=== PATIENT | female | born 1985 | race Caucasian/White ===

== ENCOUNTER 2022-06-02 14:18 | Outpatient (CLI) | payer OTHER, SELFPAY ==
[2022-06-02 17:07] LABS: Chlamydia DNA Amplified* NOT DETECTED (No Detected); GC DNA Amplified* NOT DETECTED (No Detected)
[2022-06-02 20:06] LABS: Hepatitis B Surface Antigen* Negative (Negative)
[2022-06-02 20:14] LABS: HIV 1/2/P24 Combo Screen* Negative (Negative)
[2022-06-02 20:23] LABS: Hepatitis C Virus Antibody* Negative (Negative)
[2022-06-04 16:21] LABS: Varicella-Zoster Virus Ab, IgG 690.1 IV
[2022-06-04 16:27] LABS: Rubella Antibody IgG 12.8 IU/mL
[2022-06-04 18:04] LABS: Rapid Plasma Reagin (RPR) Non Reactive (Non Reactive)
== END 2022-06-02 14:19 | disposition home or self-care (01) ==
PROVIDERS: Visit Provider Physician Assistant
DX: O09.521 Supervision of elderly multigravida, first trimester (principal); Z36.89 Encounter for other specified antenatal screening; Z3A.13 13 weeks gestation of pregnancy
CPT/HCPCS: 76817; 86592; 86703; 86762; 86787; 86803; 86850; 86900; 86901; 87086; 87340; 87491; 87591

== ENCOUNTER 2022-08-20 13:53 | Outpatient (CLI) | payer OTHER, SELFPAY | END 2022-08-20 13:54 | disposition home or self-care (01) | PROVIDERS: Visit Provider Pediatrics Neonatal-Perinatal Medicine | DX: O09.512 Supervision of elderly primigravida, second trimester (principal); Z3A.20 20 weeks gestation of pregnancy | CPT/HCPCS: 76811 ==

== ENCOUNTER 2022-10-17 08:43 | Outpatient (CLI) | payer OTHER, SELFPAY ==
[2022-10-19 06:27] LABS: Rapid Plasma Reagin (RPR) Non Reactive (Non Reactive)
== END 2022-10-17 08:44 | disposition home or self-care (01) ==
LOC: NFLDREF 08:44
PROVIDERS: Visit Provider Obstetrics & Gynecology
DX: O09.523 Supervision of elderly multigravida, third trimester (principal); Z3A.28 28 weeks gestation of pregnancy
CPT/HCPCS: 86592

== ENCOUNTER 2022-12-15 09:33 | Outpatient (CLI) | payer OTHER, SELFPAY ==
[2022-12-16 10:37] LABS: Strep B DNA Probe NEGATIVE (Negative); Strep B Pen/Amox Allergy No
== END 2022-12-15 09:34 | disposition home or self-care (01) ==
PROVIDERS: PCP Obstetrics & Gynecology; Visit Provider Obstetrics & Gynecology
DX: Z34.90 Encounter for supervision of normal pregnancy, unspecified, unspecified trimester (principal)
CPT/HCPCS: 87081; 87653

== ENCOUNTER 2022-12-29 09:32 | Inpatient (IN) | payer OTHER, SELFPAY ==
[2022-12-29] VITALS (24 sets, daily range): BP systolic 98–134; BP diastolic 46–78; PULSE 58–80; RESP 16–18; TEMP 36.5–37; O2SAT 96–100; BMI 35.8
[2022-12-29] MEDS: LACTATED RINGERS 1000 ML 1,000 ML IV ×2 (10:20→13:35)
--- NOTE | 2022-12-29 10:34 | P.LDBA_ITS ---
Subjective History of Present Illness Narrative: Patient is being admitted to Labor and Delivery for repeat with bilateral salpingectomy. She is a 37 year old at 39 weeks gestation. OB Problem List Specific Issues/Plans . Spouse: [] Children: 2. Baby: Boy. ?1. ? History of , 2nd .? Low-lying placenta. * Operative report ([facility]). * Double layer uterine closure * TOLAC consent given to the patient * Chance of successful : 74.5% * After possible TIA in September 2022 decided to have a scheduled repeat c- section. * Also desires salpingectomy at time of ?3.? History of scoliosis status post surgery with rikki placement * ?Difficult epidural placement with first baby, but no difficulty with spinal for planned * [place] unable to do successful spinal tap during hospitalization (see below) * Anesthesia consult: completed ? 4.? Obesity, BMI 32.9 * hemoglobin A1c: 5.4% * 1hr GTT: 138 * Consider Lovenox 5.? AMA * ?level 2 ultrasound scheduled w/ Dr. Austin * ?[id number] 06/30/22:? No increased risk for aneuploidy.? Male. 6.? 1st complicated by low HEVER, chorioamnionitis and retained placenta.? 7. Suspected reversible cerebral vasospasm 10/09/22, per [place] [facility] * ED visit 10/09/2022 - presented with transient vision changes and aphasia, followed by headache.? * Initial ED visit in [place], transferred to [place].? Admitted overnight * Workup:? MRI brain, MRA head, and MRA neck all normal.? She was admitted to the stroke service for observation.? Normal CBC, sed rate 26, LDL 157, A1c 5.1%.? Normal magnesium and phosphorus.? Normal thyroid function, hepatic labs, CRP, thrombophilia panel. * LP attempted, but unsuccessful due to scoliosis. * Pending at time of discharge: MOG. NMO, JODY, beta 2 glycoprotein, phospholipid antibodies, TTE:? Patient brought results up on her phone at her visit on 10/17/2022:? All normal. * Routine EEG:? Normal * Plan to repeat brain MRI in 1 week (Normal MRI 10/16/09)? Her symptoms had resolved and she was also discharged with a 30 day Holter and follow-up with Neurology & PCP * Neurology follow up December 03:? no changes, no follow up needed * Recommended she start aspirin 81 mg.? Neurology had not recommended any anticoagulation. * 30 day Holter monitor:? Mobitz I AV block.? Cardiology consult: Not needed per [place], no follow up needed ? Flu vaccine: 07/24/22 ? Tdap: 10/27/22 ? COVID vaccine:? Vaccinated, due for booster Her full history and physical was dictated by Dr. Grant on 12/15/2022. Please see this for details. OB - Problem Based A/P Additional Plan (1) : Status: Acute (2) History of : Problem details: low-lying placenta Status: Acute Plan Repeat with bilateral salpingectomy. Will have continuous monitoring until . Delivery/Labor/Induction Plan Plan: Section OB Exam Physical Exam Vital signs: Pulse Ox 97 12/29/22 10:25 Narrative: Gen - NAD HEENT - NC / AT Abd - soft, NT, gravid, thin scar noted tracing: Baseline 150 / accels present / moderate variability. She did have prolonged decel into 90s after IV placement, lasting around 5 minutes. This has resolved with baseline back to 150.
--- NOTE | 2022-12-29 10:34 | W.PM.LDBA ---
Subjective History of Present Illness Narrative: Patient is being admitted to Labor and Delivery for repeat with bilateral salpingectomy. She is a 37 year old at 39 weeks gestation. OB Problem List Specific Issues/Plans . Spouse: [] Children: 2. Baby: Boy. ?1. ? History of , 2nd .? Low-lying placenta. Operative report ([facility]). Double layer uterine closure TOLAC consent given to the patient Chance of successful : 74.5% After possible TIA in September 2022 decided to have a scheduled repeat . Also desires salpingectomy at time of ?3.? History of scoliosis status post surgery with rikki placement ?Difficult epidural placement with first baby, but no difficulty with spinal for planned [place] unable to do successful spinal tap during hospitalization (see below) Anesthesia consult: completed ? 4.? Obesity, BMI 32.9 hemoglobin A1c: 5.4% 1hr GTT: 138 Consider Lovenox 5.? AMA ?level 2 ultrasound scheduled w/ Dr. Austin ?[id number] 06/30/22:? No increased risk for aneuploidy.? Male. 6.? 1st complicated by low HEVER, chorioamnionitis and retained placenta.? 7. Suspected reversible cerebral vasospasm 10/09/22, per [place] [facility] ED visit 10/09/2022 - presented with transient vision changes and aphasia, followed by headache.? Initial ED visit in [place], transferred to [place].? Admitted overnight Workup:? MRI brain, MRA head, and MRA neck all normal.? She was admitted to the stroke service for observation.? Normal CBC, sed rate 26, LDL 157, A1c 5.1%.? Normal magnesium and phosphorus.? Normal thyroid function, hepatic labs, CRP, thrombophilia panel. LP attempted, but unsuccessful due to scoliosis. Pending at time of discharge: MOG. NMO, JODY, beta 2 glycoprotein, phospholipid antibodies, TTE:? Patient brought results up on her phone at her visit on 10/17/2022:? All normal. Routine EEG:? Normal Plan to repeat brain MRI in 1 week (Normal MRI 10/16/09)? Her symptoms had resolved and she was also discharged with a 30 day Holter and follow-up with Neurology & PCP Neurology follow up December 03:? no changes, no follow up needed Recommended she start aspirin 81 mg.? Neurology had not recommended any anticoagulation. 30 day Holter monitor:? Mobitz I AV block.? Cardiology consult: Not needed per [place], no follow up needed ? Flu vaccine: 07/24/22 ? Tdap: 10/27/22 ? COVID vaccine:? Vaccinated, due for booster Her full history and physical was dictated by Dr. Grant on 12/15/2022. Please see this for details. OB - Problem Based A/P Additional Plan (1) : Status: Acute (2) History of : Problem details: low-lying placenta Status: Acute Plan Repeat with bilateral salpingectomy. Will have continuous monitoring until . Delivery/Labor/Induction Plan Plan: Section OB Exam Physical Exam Vital signs: Pulse Ox 97 12/29/22 10:25 Narrative: Gen - NAD HEENT - NC / AT Abd - soft, NT, gravid, thin scar noted tracing: Baseline 150 / accels present / moderate variability. She did have prolonged decel into 90s after IV placement, lasting around 5 minutes. This has resolved with baseline back to 150.
[2022-12-29 10:54] LABS: SARS PCR* Negative SARS-CoV-2 (Negative)
[2022-12-29 10:59] LABS: Hemoglobin* 11.8 gm/dL (12.0-16.0)
[2022-12-29] MEDS: CEFAZOLIN 2 GM INJ IVP (11:40)
--- NOTE | 2022-12-29 12:08 | W.ANESCHARGE ---
Anesthesia Charges Start Date/Time Anesthesia Start Date: 12/29/22 Anesthesia Start Time: 11:32 Stop Date/Time Anesthesia Stop Date: 12/29/22 Anesthesia Stop Time: 12:06
--- NOTE | 2022-12-29 12:59 | PM.OBPRCCS ---
Procedure Pre-op/Post-op diagnoses: Pre-Op/Post-Op Diagnoses Operation Date: 12/29/22 11:45 <No data on this case meets the specified criteria> Procedure Done: Global Procedure Details: Procedures Operation Date: 12/29/22 11:45 Actual Procedure Side Surgeon p Repeat Section, Bilateral Salpingectomy Bilateral Julia Grant MD Narrative: PREOPERATIVE DIAGNOSIS: 39 weeks, 0 days gestation Previous , desires repeat Undesired fertility POSTOPERATIVE DIAGNOSIS: 39 weeks, 0 days gestation Previous , desires repeat Undesired fertility PROCEDURE: Repeat low-transverse section with bilateral salpingectomy SURGEON: Julia Grant MD ANESTHESIA: Spinal IV FLUIDS: 1300 mL crystalloid QBL: 476 mL FINDINGS: 1. Male , in cephalic OA presentation, Apgars of 9 and 10, weight 6 lb, 14 oz 2. Normal appearance to uterus, bilateral tubes and ovaries. COMPLICATIONS: None PROCEDURE IN DETAIL: Patient was taken to the operating room with IV running. She received cefazolin in preoperative prophylaxis. Spinal anesthesia was administered. Shields catheter was inserted. She was prepped and draped in the usual sterile fashion. Anesthesia was tested and found to be adequate. A low-transverse skin incision was made with a scalpel and carried through to the underlying layer of fascia with the scalpel. The subcutaneous fat was dissected off the underlying fascia with Bovie. The fascia was nicked in the midline with a scalpel, and this incision was extended laterally with scissors. The fascia was dissected off the underlying rectus sharply, both inferiorly and superiorly. The rectus muscles were in the midline. Peritoneum was identified and entered bluntly. Bovie was used to widen this opening. Shayan O retractor was inserted and tightened down, providing excellent visualization of the lower uterine segment. The bladder reflection was found to be well below the planned site for hysterotomy. Low-transverse uterine incision was made with a scalpel. Incision was widened bluntly. The infant's head was grasped through the hysterotomy and delivered with the help of fundal pressure. The remainder of the body delivered without incident. Cord was clamped and cut after 30 seconds. was handed off to attending nurses. The placenta was delivered manually after gentle traction on the cord resulted in cord avulsion. The uterus was cleaned of all clots and debris with the dry lap pad. The uterus was exteriorized. The hysterotomy was reapproximated with 0 Vicryl in a running, locked fashion. A single [id number] imbricating suture was used in the midportion of the hysterotomy. Bovie was used on oozing vessels to obtain excellent hemostasis. The adnexa were examined and noted to be normal in appearance. The left tube was grasped with [place] clamps and elevated. The left tube was coagulated and transected with the LigaSure Exact device at the uterine cornua. Dissection proceeded laterally to medially through the left mesosalpinx, and the blood supply to the fallopian tube was divided laterally adjacent to the fimbria. Thus the tube was freed and sent to pathology. This procedure was repeated on the patient's right side. Hemostasis was noted on each side. The uterus was returned to the abdomen. The cul-de-sac and gutters were cleansed with dampened laparotomy sponge, removing any further clots and debris. The Shayan O retractor was removed. The hysterotomy was reexamined and found to be hemostatic. The peritoneum was reapproximated with 2 0 Vicryl in a running fashion. The rectus muscles were examined and Bovie used on oozing vessels. The fascia was reapproximated with 0 Vicryl in a running fashion. Subcutaneous fat was irrigated and Bovie used on oozing vessels. The subcutaneous fat was reapproximated with 2 0 plain gut suture in an interrupted fashion. The skin was closed with a subcuticular stitch of 4-0 Monocryl. Surgical glue was applied above this. Patient tolerated procedure well was taken to recovery area in stable condition. [place] total score - 1 minute: 9 total score - 5 minute: 10
--- NOTE | 2022-12-29 13:15 | W.ANESCHARGE ---
Anesthesia Charges Start Date/Time Anesthesia Start Date: 12/29/22 Anesthesia Start Time: 11:32 Stop Date/Time Anesthesia Stop Date: 12/29/22 Anesthesia Stop Time: 12:06
--- NOTE | 2022-12-29 13:17 | W.ANESCHARGE ---
Anesthesia Charges Start Date/Time Anesthesia Start Date: 12/29/22 Anesthesia Start Time: 11:32 Stop Date/Time Anesthesia Stop Date: 12/29/22 Anesthesia Stop Time: 13:06
--- NOTE | 2022-12-29 13:18 | W.ANESCHARGE ---
Anesthesia Charges Start Date/Time Anesthesia Start Date: 12/29/22 Anesthesia Start Time: 11:32 Stop Date/Time Anesthesia Stop Date: 12/29/22 Anesthesia Stop Time: 13:06
--- NOTE | 2022-12-29 13:21 | P.NB_ITS ---
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 Images saved: Yes Medications given in 5ml increments after negative aspiration: Marcaine %: 0.25 mL: 30 Needle gauge: 20 and Exparel mL: 10 Patient tolerated procedure well: Yes Additional comments: Needle noted adjacent to nerve Block Charges Block Charge (with Pro Fee): TAP Bilateral Use of Ultrasound Machine for Block: Yes- US Guidance/pain block
[2022-12-29] MEDS: LACTATED RINGERS 1000 ML 1,000 ML 125 ML IV ×2 (13:50→17:30)
[2022-12-29] MEDS: ACETAMINOPHEN 500 MG TABLET 1000 MG PO (17:38)
[2022-12-29] MEDS: KETOROLAC 30 MG/ML inj IVP (18:45)
[2022-12-29] MEDS: ENOXAPARIN 40 MG/0.4 ML INJ SUBCUT (23:14)
[2022-12-30] VITALS (13 sets, daily range): BP systolic 101–126; BP diastolic 61–79; PULSE 64–81; RESP 16–20; TEMP 36.6–37.1; O2SAT 96–99
[2022-12-30] MEDS: KETOROLAC 30 MG/ML inj IVP ×4 (00:54→19:39)
[2022-12-30 05:25] LABS: Hemoglobin* 9.9 gm/dL (12.0-16.0)
--- NOTE | 2022-12-30 07:45 | PM.OBPNCS1 ---
OB - PN: A/P Assessment and Plan (1) : Status: Resolved (2) History of : Problem details: low-lying placenta Status: Acute Plan day: 1 Plan: routine postop care Comments: Assessment/Plan G 3 P 3 status post uncomplicated repeat . 1. ?Continue route PP cares 2. ?. ?May see if desired 3. ?Anticipate discharge home tomorrow or the following day per pt preference 4. ?Acute anemia. ?Iron supplement ordered OB - PN: Subj Subjective Time Seen by Provider: 07:46 Date Seen: 12/30/22 Interval history: Chantal is a 37 y.o. who was admitted to L & D for a repeat . ?She had an uncomplicated . ? Patient comments: no complaints and pain well controlled [place] status: feeding status: exclusively Narrative: The patient feels well. ?The pain is well controlled with current medications. ?She has no new complaints. ?She is breast feeding and reports things are going well.? the patient has done well.? Vitals have been stable.? She has remained afebrile.? Has a good appetite, is tolerating a general diet. ?Her tamez is still in place this AM.? She is passing gas and has not had a bowel movement.? She is ambulating and denies any dizziness.? Has Small amount of rubra lochia. OB - PN: Obj Exam Physical Exam: Vital signs: Temp Pulse Resp BP Pulse Ox O2 Del Method 97.9 F 74 16 101/61 96 Room Air 12/30/22 03:00 12/30/22 03:00 12/30/22 06:16 12/30/22 03:00 12/30/22 03:00 12/30/22 03:00 Narrative: VSS. Afebrile GENERAL APPEARANCE: ?normal affect, alert, no distress MOOD: ?appropriate HEENT: normocephalic, neck supple, full ROM CHEST: ?Symmetrical chest wall movement. ?Normal respiratory effort. ?Clear to auscultation HEART: ?regular rate and rhythm ABDOMEN: ?soft, non-tender. Uterine fundus is firm, at Umbilicus, Midline and is appropriate for the stage of recovery. ?Bowel sounds present. EXTREMITIES: ?normal and trace edema SKIN: warm, dry. Dressing on, clean/dry/intact No signs of infection noted. Urinary Catheter Management: Urethral: Cath placed during this visit: yes, but has since been removed by the nurse Reason for continuing: surgical procedure Insertion date: 12/29/22 Insertion time: 11:45 Removal date: 12/30/22 Removal time: 08:00 OB - PN: Obj Data Labs Labs: Laboratory Results - last 24 hr 12/29/22 12/29/22 12/30/22 10:13 10:18 05:15 Hgb 11.8 L 9.9 L SARS-CoV-2 (PCR) Negative SARS-CoV-2 Blood Type B Positive
[2022-12-30] MEDS: FERROUS SULFATE 325 MG TABLET PO ×2 (09:41)
[2022-12-30] MEDS: DOCUSATE SODIUM 100 MG CAPSULE PO (18:24)
[2022-12-30] MEDS: ACETAMINOPHEN 500 MG TABLET 1000 MG PO (19:45)
[2022-12-31] MEDS: IBUPROFEN 600 MG TABLET PO (03:21)
[2022-12-31 03:32] VITALS: BP 127/87; PULSE 65; RESP 20; TEMP 36.6; O2SAT 99
--- NOTE | 2022-12-31 07:52 | P.DS_ITS ---
DS: Providers Provider Date Seen: 12/31/22 Date of admission: 12/29/22 09:32 Primary care physician: Julia Grant MD Admitting Clinician: Julia Grant MD Attending Physician on discharge: Julia Grant MD Date of Discharge: 12/31/22 DS: Diagnosis Discharge Diagnosis (1) Status post bilateral salpingectomy: Status: Acute (2) S/P repeat low transverse : Status: Acute (3) Lactating mother: Status: Acute Exam Narrative: Exam Narrative: GENERAL APPEARANCE:? normal affect, alert, no distress? MOOD:? appropriate? CHEST:? clear to auscultation and percussion? HEART:? regular rate and rhythm? ABDOMEN:? soft, non-tender the uterine fundus is 2 cm Below Umbilicus, Midline and is appropriate for the stage of recovery. Incision well approximated without edema, redness, warmth, or drainage. Glue closure intact.?A small quarter size spot of bruising was noted on the right top side of the incision.? EXTREMITIES:? normal and no edema? Patient has no complaints? No active bleeding?? Doing well? She is requesting discharge home.? Const: Vital Signs, click to edit/add: Vital Signs - 24 hr 12/30/22 08:16 12/30/22 12:30 12/30/22 16:50 Temperature 97.9 F 98.8 F Pulse Rate [Left P ulse Oximeter] 71 79 Respiratory Rate 16 16 16 Blood Pressure [Le ft Arm] 118/78 123/72 Pulse Oximetry 97 96 Oxygen Delivery Me thod Room Air Room Air 12/30/22 19:49 12/31/22 03:32 Temperature 98 F 97.8 F Pulse Rate [Left P ulse Oximeter] 81 65 Respiratory Rate 20 20 Blood Pressure [Le ft Arm] 126/79 127/87 Pulse Oximetry 99 99 Oxygen Delivery Me thod Room Air Room Air Documenting provider has reviewed patient's vital signs: yes DS: Data Data Completed and Pending Labs on day of discharge: Labs from last 24 hours 12/29/22 10:13 Antibody Screen NEGATIVE OB - DS: Summary Hospital Course Hospital Course: Patient is a 37year old, G 3 now P 3? admitted on 12/29/22 at 39 Weeks, 0 Days gestation for repeat section.? She had an uncomplicated delivery.? She delivered a viable male .? She is breast feeding and reports things are well.? the patient has done well.? Her pain is well controlled with current medications.? She has no new complaints.? Vitals have been stable. She has remained afebrile. She is voiding without difficulty. She is passing gas and has not had a bowel movement. She is ambulating and denies any dizziness. She had a bilateral tubal ligation for control.?After consultation with Dr. Grant it was recommended that she restart taking a 81mg Asa for 6 weeks due to her history of a questionable TIA vs migraine with aura. She will also continue taking PO iron supplementation due to anemia with a hgb of 9.9. Peripartum Data Procedures: Procedures Operation Date: 12/29/22 11:45 Actual Procedure Side Surgeon p Repeat Section, Bilateral Salpingectomy Bilateral Julia Grant MD complications: none [place] Infant Gender: Male Discharge Plan: Home Status at Discharge Functional status at discharge: independent ambulation Overall status at discharge: patient is progressing back to baseline Time Spent with Patient Time attestation: Total time spent providing and/or coordinating discharge services: Discharge Plan Discharge Disposition: Home, Self-Care Date of Admission: 12/29/22 09:32 Primary Care Provider: Julia Grant Condition: Stable Anticipated Discharge Date/Time: 12/31/22 10:00 Discharge Medications: New ferrous sulfate 325 mg (65 mg iron) Tablet 325 mg PO DAILYWM Qty: 60 0RF ibuprofen 600 mg Tablet 600 mg PO Q6H PRN (Reason: Pain) Qty: 60 0RF oxycodone 5 mg Tablet 5 - 10 mg PO Q4H PRN (Reason: Pain) Qty: 5 0RF Continued DHA 200 mg capsule 200 mg PO DAILY Discharge Orders: Discharge Order (Routine); Ordered 12/31/22 Ordered By: Marion Dawson Patient Education: OB /Breast Feeding Additional Instructions: Discharge instructions were reviewed with the patient including signs and symptoms of infection and home going medications? ? Take one 81mg aspirin daily for 6 weeks. ? Activity restrictions:? Lifting Restrictions: 20 pounds for 6 weeks? No high-impact or core exercises for 6 weeks.?? No not submerge incision under water X 2 weeks?? Nothing vaginally for 6 weeks: no tampons or intercourse? Do not drive while taking narcotic pain medication(s)? Off Work or School for 8 weeks? ?? Symptoms to report to doctor:? -Bleeding that saturates more than one pad per hour? -Passing clots larger than the size of a golf ball? -Pain not relieved by prescribed medication? -Fever above 100.4 degrees Fahrenheit? -A foul vaginal odor? -Difficulty in emotions, mood and functions? -Thoughts of hurting yourself and/or ? -Painful, reddened area in your breast? -Any drainage, redness or tenderness in your IV/epidural site? -Severe headache that doesn't improve after taking medications? -Changes in vision, including temporary loss of vision, blurred vision, and/or light sensitivity? -Upper abdominal pain (usually under ribs on the right side)? -Decrease in urination or painful, frequent urinating? -Chest pain? -Shortness of breath? -Tenderness or pain with redness and/swelling in the calf(s) of your leg? Follow up visits:?? 1. 1 week visit:? incision check.? 2. 2-week visit: discuss infant feeding/care concerns, review control options and screen for anxiety/depression.? 3. 6-week visit for an annual exam.? ?? consultation services are available to all mothers and babies for the first year after delivery.? To make an appointment, please call [phone].? Activity Level: Activity as Tolerated, No strenuous activity and Weight Bearing as Tolerated Discharge Diet: Regular Follow Up Appointments: [facility] [Provider Group] Julia Grant MD [Primary Care Provider] - Forms: [employer] Info Instructions
[2022-12-31] MEDS: FERROUS SULFATE 325 MG TABLET PO (07:55)
[2022-12-31] MEDS: DOCUSATE SODIUM 100 MG CAPSULE PO (07:55)
[2022-12-31] MEDS: ACETAMINOPHEN 500 MG TABLET 1000 MG PO (07:55)
[2022-12-31 08:44] VITALS: BP 126/81; PULSE 76; RESP 18; TEMP 36.6
== END 2022-12-31 09:45 | disposition home or self-care (01) | DRG 784 ==
PROVIDERS: Admitting Provider Obstetrics & Gynecology; PCP Obstetrics & Gynecology; Visit Provider Obstetrics & Gynecology
PROC: 10D00Z1 Extraction of Products of Conception, Low, Open Approach (ICD-10-PCS; CPT 59514; principal; 2022-12-29 11:30)
DX: O34.211 Maternal care for low transverse scar from previous cesarean delivery (principal); D62 Acute posthemorrhagic anemia; O90.81 Anemia of the puerperium; M41.9 Scoliosis, unspecified; I44.1 Atrioventricular block, second degree; Z3A.39 39 weeks gestation of pregnancy; Z37.0 Single live birth; Z86.73 Personal history of transient ischemic attack (TIA), and cerebral infarction without residual deficits
CPT/HCPCS: 01961; 36415; 76942; 85018; 86850; 86900; 86901; 87635; 88302; A9270; C9290; J0690; J1100; J1650; J1885; J2274; J2370; J2405; J2590; J3010; J3490; J7120

== ENCOUNTER 2024-03-01 09:25 | Outpatient (CLI) | payer OTHER, SELFPAY ==
--- OUTSIDE RECORDS SUMMARY | 2024-03-01 09:38 | XMS_ITS | Clinical Summary ---
Author Organization [facility] Address [address] [place] [address] Care Team Providers Care Certified Medical Records Coder Name Role Phone Mariah Villatoro M.D. Primary Care Provider [phone] Source Comments Patient records contain information from all sites at [facility]. For routine questions regarding patient records, call [phone] during business hours, M-F 8:00 AM - 5:00 PM Central Time. Record requests for emergency care only can be directed to [phone] at any time.[facility] Allergies No known active allergies Medications Medication Sig Dispensed Refills Start Date End Date Status [id number]-FA (VINATE ONE) 60 mg iron-1 mg per tablet Take 1 tablet by mouth daily. Active ondansetron ODT (ZOFRAN-ODT) 4 mg disintegrating tablet Dissolve 4 mg in the mouth 3 (three) times a day as needed for nausea. 08/04/[address] tablet Take 81 mg by mouth daily. Active ferrous sulfate 325 mg (65 mg iron) tablet 325 mg orally daily with meal 100 tablet 12/31/2022 Active oxyCODONE (ROXICODONE) 5 mg immediate release tablet Take 1-2 tablets (5-10 mg total) by mouth every 4 (four) hours as needed for pain. 5 tablet 12/31/2022 Active ibuprofen (MOTRIN) 600 mg tablet Take 1 tablet (600 mg total) by mouth every 6 (six) hours as needed for pain. 60 tablet 12/31/2022 Active Active Problems Problem Noted Date Diagnosed Date Transient Ischemic Attack 10/08/2022 Eczema 07/19/2020 Care And Lactating 05/03/2019 Overview: CS 11/17/19 Scoliosis 05/03/2019 Overview: 05/03 Does have rods in place Resolved Problems Problem Noted Date Diagnosed Date Resolved Date Maintenance Health Adult 01/03/202008/2020 Overview: Next screen for cervical cancer: May 2024. Section Delivery 11/12/2019 Overview: The patient was admitted to the [facility] for a scheduled primary . Her was complicated by low lying placenta, impaired glucose tolerance. Complications of labor included nothing -- it was uncomplicated. She had a primary delivery, delivering a liveborn female with weight of 3.03 kg . Gestational age: 37w5d. occurred: 11/17/2019 , 8:37 AM Both mother and baby were in stable condition at the conclusion of the procedure. When the patient met appropriate criteria, she was transferred to the floor. The remainder of her course was uncomplicated. She received her care at [facility]. Bleeding Vaginal G reater Than 22 Week 11/09/2019 11/09/2019 Placenta Separation 11/09/2019 11/19/19 Overview: 11/14/19: Formal US reviewed: placenta is 1.3 cm from internal os of cervix. EFW 80%. Plan for LTCS 11/17/19. Soap packet and instructions provided today. 11/11: Seen in triage for 4th episode of bleeding during . After evaluation with Dr Moreno, was moved up to 11/16 at 37w5d. Discussed with patient this may be moved pending her US on 11/14 Per MFM on 11/09/19: 1. Planned elective primary section on maternal request scheduled on 11/28/2019 at 39w1d gestation. 2. Repeat growth ultrasound as scheduled on 11/11/2019 at 36w6d gestation to evaluate interval growth. 3. Continue previously recommended twice a week surveillance with either a biophysical profile, modified BPP or nonstress test. 4. Low threshold with proceeding with delivery anytime now if she has recurrence of vaginal bleeding. 36 Weeks Gestation 11/09/2019 11/11/2019 Placenta Previa Affecting Fetus 11/05/2019 11/09/2019 Low Lying Placenta With Hemo rrhage Third Trimester 10/20/2019 11/19/2019 Overview: 11/15/19: Formal US reviewed: There is persistence of low lying placenta previa. The inferior edge of the placent is 1.3 cm from the internal os of the cervix. Admitted on 10/20 for 1st episode of bleeding in . BMZ complete 10/19- 10/20. Low lying placenta 1.1 cm from cervical os. Plan for repeat US in 3-4 weeks for placental assessment. Plan would be for early term delivery 36-37 wks 33 Weeks Gestation 10/19/2019 11/04/2019 Bleeding Vaginal G reater Than 22 Week 09/29/2019 10/17/2019 Overview: Postcoital bleeding; evaluated in triage 09/29 30 Weeks Gestation 09/29/2019 10/17/2019 Impaired Glucose Tolerance 09/09/2019 0 11/19/2019 Overview: 09/13/19 CLR: 1 elevated value of 3 hour GTT: 95, 156, 124, 58. Will offer nutrition consult 09/09/19 CLR: 1 hour glucose result of 143. 3 hour GTT ordered. Partial Placenta Previa With out Hemorrhage Second Trimester 07/11/2019 09/29/2019 Overview: 09/02 CLR: Placenta previa has resolved. 08/17 CLR: US report: Known placenta previa, majority of placenta is anterior with a small posterior portion that traverses over the internal os of the cervix. Bleeding precautions reviewed as well as pelvic rest. Bleeding precautions given Referral placed for Level II and MFM at 32 weeks. 07-12-19: desires transfer to [facility], referral placed High Risk 07/11/2019 09/13/19 Overview: 08/16 CLR: Known placenta previa. Immunizations Name Administration Dates Next Due SARS-COV-2 (COVID-19) - PFIZ ER (Discontinued)(12 years or older) 12/24/2020,11/29/2020 Tdap 09/14/2019 influenza vaccine quad (FLUZ ONE/FLUARIX) (6 months and older)(PF) 07/24/2022,09/03/2021,06/20/2020 Family History Medical History Relation Name Comments No Known Problems Brother 1 No Known Problems Brother 2 Asthma Father Angel quintero Colon cancer Father Angel quintero Renal insufficiency Maternal Grandfather Hypertension Maternal Grandmother Hyperlipidemia Mother Hailey Quintero Hypertension Mother Hailey Quintero Diet controlled Cancer Paternal Grandfather Lung? S hector smoking history. Cancer Paternal Grandmother Lung? S hector smoking history. Asthma Sister No Known Problems Son Relation Name Status Comments Brother 1 Alive Brother 2 Alive Father Angel quintero Alive Maternal Grandfather Alive Maternal Grandmother Mother Hailey Quintero Alive Paternal Grandfather Paternal Grandmother Sister Alive Son Alive Social History Tobacco Use Types Packs/Day Years Used Date Smoking Tobacco: Never Passive Smoke Exposure: Never Smokeless Tobacco: Never Alcohol Use Standard Drinks/Week Comments Never 0 (1 standard drink = 0.6 oz pur e alcohol) Humiliation, Afraid, Rape, and Kick questionnair e Answer Date Recorded Within the last year, have y ou been afraid of your partner or ex-partner? No 12/01/2022 Within the last year, have y ou been humiliated or emotionally abused in other ways by your partner or ex-partner? No Within the last year, have y ou been kicked, hit, slapped, or otherwise physically hurt by your partner or ex-partner? No 12/01/2022 Within the last year, have y ou been raped or forced to have any kind of sexual activity by your partner or ex-partner? No 12/01/2022 Social Connection and Isolat ion Panel [NHANES] Answer Date Recorded In a typical week, how many times do you talk on the phone with family, friends, or neighbors? More than three times a week 12/01/2022 How often do you get togethe r with friends or relatives? Once a week 12/01/2022 How often do you attend [facility] or anglican services? Never 12/01/2022 Do you belong to any clubs o r organizations such as restoration groups, unions, fraternal or athletic groups, or school groups? No 12/01/2022 How often do you attend meet ings of the clubs or organizations you belong to? Never 12/01/2022 Are you , , di vorced, , never , or living with a partner? 12/01/2022 AUDIT-C Answer Date Recorded Q1: How often do you have a drink containing alc ohol? Never 12/01/2022 Average Number of Drinks Not on file 023 Frequency of Binge Drinking Not on file 11/06 Overall Financial Resource Strain (CARDIA) Answe r Date Recorded How hard is it for you to pa y for the very basics like food, housing, medical care, and heating? Not hard at all 12/01/2022 PHQ-2 Answer Date Recorded PHQ-2 Score 0 10/27/2022 [facility] Occupat ional [facility] - Occupational Stress Questionnaire Answer Date Recorded Do you feel stress - tense, restless, nervous, or anxious, or unable to sleep at night because your mind is troubled all the time - these days? Not at all 12/01/2022 Exercise Vital Sign Answer Date Recorde d On average, how many days pe r week do you engage in moderate to strenuous exercise (like a brisk walk)? 3 days 12/01/2022 On average, how many minutes do you engage in exercise at this level? 30 min 12/01/2022 Hunger Vital Sign Answer Date Recorded Within the past 12 months, y ou worried that your food would run out before you got the money to buy more. Never true 12/02/19 23 Within the past 12 months, t he food you bought just didn't last and you didn't have money to get more. Never true 12/01/2022 PRAPARE - Transportation Answer Date Re corded In the past 12 months, has l ack of transportation kept you from medical appointments or from getting medications? No 11/06 In the past 12 months, has l ack of transportation kept you from meetings, work, or from getting things needed for daily living? No 12/01/2022 Housing Stability Vital Sign Answer Abdirahman e Recorded In the last 12 months, was t here a time when you were not able to pay the mortgage or rent on time? No 12/01/2022 In the last 12 months, how many places have you lived? 1 12/01/2022 In the last 12 months, was t here a time when you did not have a steady place to sleep or slept in a senior living (including now)? No 12/01/2022 Depression Answer Date Recor ded PHQ-9 Total Score (max 27) 0 10/09 Nutrition Answer Date Recorded Nutrition: EVOO Fat Source Yes 12/01 On average, how many serving s of fruits and vegetables do you eat per day (serving size is equal to 1 cup or approximately the size of a tennis ball)? 2-3 12/01/2022 Dental Answer Date Recorded Dental: Regular Dentist No 12/02/19 23 Employment Answer Date Recorded Employment status Unemployed/not in e paid workforce and NOT seeking employment 12/01/2022 Education Answer Date Recorded What is the highest level of school you have completed or the highest degree you have received? Master's degree (e.g., MA, MS, Al, MEd, INSTRUCTIONAL SUPPORT ASSISTANT, LIBIA) 05/25/2019 Sex and Gender Information Value Date Recorded Sex Assigned at Female 12/01/2022 1:57 PM CDT Gender Identity Female 08/12/2019 8:02 PM COMPOSITION INSTRUCTOR Sexual Orientation Straight 08/12/2019 8: 02 PM COMPOSITION INSTRUCTOR Last Filed Vital Signs Vital Sign Reading Time Taken Comments Blood Pressure 118/74 10/27/2022 3:11 PM COMPOSITION INSTRUCTOR Pulse 74 10/27/2022 3:11 PM COMPOSITION INSTRUCTOR Temperature 35.7 ??C (96.3 ??F) 10/27/2022 3:11 PM CS T Respiratory Rate 15 10/09/2022 5:15 PM COMPOSITION INSTRUCTOR Oxygen Saturation 99% 10/27/2022 3:11 PM COMPOSITION INSTRUCTOR Inhaled Oxygen Concentration - - Weight 92 kg (202 lb 13.2 oz) 12/03/2022 1:00 PM CDT Height 161.5 cm (5' 3.58) 12/03/2022 1:00 PM CD T Body Mass Index 35.27 12/03/2022 1:00 PM CDT Plan of Treatment Health Maintenance Due Date Last Done Comments Hepatitis C Screening 1987 Hepatitis B Vaccines (1 of 3 - 19+ 3-dose series) 2006 COVID-19 Vaccine (5 - 2023-24 season) 2023 06/20/2022, 09/03/2021, 12/24/2020, Additional history exists Influenza Vaccine (#1) 2023 , 09/03/2021, 06/20/2020 Depression Screening (Annual PHQ-2) 09/07/2023 Cervical Cancer Screening 05/31/2024 05/31/2019, Lipid (Cholesterol) Screening 10/09/2027 10/09/2022 DTaP,Tdap,and Td Vaccines (3 - Td or Tdap) 10/27/2032 10/27/2022, 09/14/2019 HIV Screening Completed 05/03/2019 HPV Vaccines Aged Out No longer eligi ble based on patient's age to complete this topic Pneumococcal vaccine (0-64 years) Aged Out No longer eligible based on patient's age to complete this topic Medical Devices Implanted Type Area Coal Handler Device Identifier Shelf Expiration Date Model / Serial / Lot Hardware E.G. Pins/Screws/Ro ds Hardware e.g. pins/screws/r ods Back Description:2 rods on each s edison of spine -scoliosis surgery Procedures Procedure Name Priority Date/Time Associated Diagnosis Comments LIPID PANEL, S Routine 10/09/2022 5:22 AM COMPOSITION INSTRUCTOR PATHOLOGY SUPERVISOR BAKING CYTOLOGY Routine 05/31/2019 12:00 AM CDT Examination Other Normal Second Trimester HIV-1 P24 AG, HIV-1/2 AB ,P Routine 05/03/2019 12:09 PM CDT Examination Other Normal First Trimester from Last 3 Months or Most Recently Relevant to Health Maintenance Results * (ABNORMAL) Lipid Panel (10/09/2022 5:22 AM COMPOSITION INSTRUCTOR) Triglycerides 134 mg/dL 10/09/2022 6:46 AM COMPOSITION INSTRUCTOR DTL Comment: ----REFERENCE VALUE---- Normal: <150 mg/dL Borderline High: 150-199 mg/dL High: 200-499 mg/dL Very High: > or =500 mg/dL Cholesterol, Total 253(H) mg/dL 2022 6:46 AM COMPOSITION INSTRUCTOR DTL Comment: ----REFERENCE VALUE---- Desirable: < 200 mg/dL Borderline High: 200 - 239 mg/dL High: > or = 240 mg/dL Cholesterol, LDL, Calculated 157(H) mg/dL 10/09/2022 6:46 AM COMPOSITION INSTRUCTOR DTL Comment: ----REFERENCE VALUE---- Desirable: <100 mg/dL Above Desirable: 100-129 mg/dL Borderline High: 130-159 mg/dL High: 160-189 mg/dL Very High: >=190 mg/dL ----ADDITIONAL INFORMATION---- LDL cholesterol calculated using the Da Silva/NIH equation. Cholesterol, HDL, S 72 >=50 mg/dL 10/09/2022 6:46 AM COMPOSITION INSTRUCTOR DTL Cholesterol, Non-HDL, Calculated 181(H) mg/dL 10/09/2022 6:46 AM COMPOSITION INSTRUCTOR DTL Comment: ----REFERENCE VALUE---- Desirable: <130 mg/dL Above Desirable: 130-159 mg/dL Borderline High: 160-189 mg/dL High: 190-219 mg/dL Very High: > or =220 mg/dL Fasting (8 HR or more) Yes 10/09/2022 6:13 AM COMPOSITION INSTRUCTOR DTL Blood (Blood, Venous) 10/09/2022 5:22 AM COMPOSITION INSTRUCTOR 10/09/2022 6:13 AM COMPOSITION INSTRUCTOR Wellington Chakraborty M.D. LAB BLOOD ADD-ON [facility] [address] [place] [address], [facility] [address] [place] [address] * Pathology SUPERVISOR BAKING Cytology (05/31/2019 12:00 AM CDT) PATHOLOGY SUPERVISOR BAKING CYTOLOGY Patient Name: CHAPINCITO MODI MR#: [id number] Submitting Physician: MEI SOUZA TILE AND MOTTLE SUPERVISOR ??[id number] Specimen #[id number] Performing Lab: ??[facility] [place] [facility] [place] [address] [facility] [address] CLINICAL HISTORY: Last menstrual period: Status: Pap Type: Routine Pap Clinical History/Status (Select all that apply): Ancillary Testing: HPV with Genotyping, PCR, ThinPrep (order separately in [facility] [id number]) Source: ThinPrep cervical/endocervi denny specimen [ThinPrep vial] Diagnosis Specimen Adequacy: Satisfactory for interpretation : endocervical or transformation zone component present. General Categorization: Negative for intraepithelial lesion or malignancy. ?? Comment HPV with Genotyping, PCR, ThinPrep, testing performed by [facility] HPV High Risk type 16, PCR ? NEGATIVE HPV High Risk type 18, PCR ? NEGATIVE HPV other High Risk types, PCR ? NEGATIVE The PAP smear is not a diagnostic procedure and should not be used as the sole means to detect cervical cancer. ??It is only a screening procedure to aid in the detection of cervical cancer and its precursors. ??Both false-negative and false-positive results have been experienced. NEET[facility] VEGA Thin Prep Vial (Cervix/Endocervi x) 05/31/2019 06/01/2019 Slava Landa APRNNEnocPEnoc LAB PAP COPATH ORDERABLES Performing Organization Address City/State/[facility] Co de Phone Number NEETU VEGA [address] [place], [place] [id number], [facility] * HIV-1 p24 Ag, HIV-1/2 Ab ,P (05/03/2019 12:09 PM CDT) HIV Ag/Ab Scrn, P Negative Negative 05/04/2019 11:11 AM CDT Comment: Negative result does not rule out HIV infection. If exposure to HIV infection occurred <14 days ago, contact the laboratory to request addition of HIV-1 RNA detection / quantification test. HIV-1 p24 Ag Scrn, P Negative Negative 05/04/2019 11:11 AM CDT Comment: Negative result does not rule out HIV infection. If exposure to HIV infection occurred <14 days ago, contact the laboratory to request addition of HIV-1 RNA detection / quantification test. HIV-1 Ab Scrn, P Negative Negative 05/04/2019 11:11 AM CDT Comment: Negative result does not rule out HIV infection. If exposure to HIV infection occurred <14 days ago, contact the laboratory to request addition of HIV-1 RNA detection / quantification test. HIV-2 Ab Scrn, P Negative Negative 05/04/2019 11:11 AM CDT Comment: Negative result does not rule out HIV infection. If exposure to HIV infection occurred <14 days ago, contact the laboratory to request addition of HIV-1 RNA detection / quantification test. Blood (Blood, Venous) 05/03/2019 12:09 PM CDT 05/03/2019 9:24 PM CDT Mei Souza APRN CEnocNEnocPEnoc LAB MICROBIOLO GY - BLOOD ORDERABLES Performing Organization Address City/State/[facility] Co de Phone Number [facility] [address] [place] [address] from Last 3 Months or Most Recently Relevant to Health Maintenance Advance Directives For more information, please contact: [phone] * Full Code (Latest Code Status on File) Date Activated Date Inactivated Comments 10/08/2022 10:10 PM 10/09/2022 7:39 PM Question Answer Comments Full Code: Discussed * Full Code Date Activated Date Inactivated Comments 10/19/2019 11:39 AM 10/20/2019 5:12 PM Question Answer Comments Full Code: Not Discussed Due to: Not medically appropriate Care Teams Certified Medical Records Coder Relationship Specialty Start Date End Date Mariah Villatoro M.D. [id number] [phone] (work) PCP - General Family Medicine 07/10/20
--- OUTSIDE RECORDS SUMMARY | 2024-03-01 09:39 | XMS_ITS | Referral Summary ---
Author Organization [facility] Address [address] [place] [address] Care Team Providers Care Packager And Strapper Name Role Phone Mariah Villatoro M.D. Primary Care Provider [phone] Source Comments Patient records contain information from all sites at [facility]. For routine questions regarding patient records, call [phone] during business hours, M-F 8:00 AM - 5:00 PM Central Time. Record requests for emergency care only can be directed to [phone] at any time.[facility] Allergies No known active allergies Medications Medication Sig Dispensed Refills Start Date End Date Status twmodok-St-czof-FA (VINATE ONE) 60 mg iron-1 mg per [...] Overview: The patient was admitted to the [facility] for a scheduled primary . Her was [...] was uncomplicated. She received her care at [facility]. Bleeding Vaginal G reater Than 22 Week [...] at 32 weeks. 07-12-19: desires transfer to [facility], referral placed High Risk 07/11/2019 09/13/19 Overview: 08/16 CLR: Known placenta previa. Immunizations Name Administration Dates Next Due SARS-COV-2 (COVID-19) - PFIZ ER (Discontinued)(12 years or older) 12/24/2020,11/29/2020 Tdap 09/14/2019 influenza vaccine quad (FLUZ ONE/FLUARIX) (6 months and older)(PF) 07/24/2022,09/03/2021,06/20/2020 Social History Tobacco Use Types Packs/Day Years [...] week 12/01/2022 How often do you attend [facility] or roman catholic services? Never 12/01/2022 Do you belong to any clubs o r organizations such as jain groups, unions, fraternal or athletic groups, or [...] Answer Date Recorded PHQ-2 Score 0 10/27/2022 [facility] Occupational Stress Questionnaire Answer Date Recorded [...] place to sleep or slept in a chcf (including now)? No 12/01/2022 Depression Answer Date [...] Date Recorded Dental: Regular Dentist No 12/02/19 Employment Answer Date Recorded Employment status Unemployed/not in e paid workforce and NOT seeking employment 12/01/2022 Education Answer Date Recorded What is the highest level of school you have completed or the highest degree you have received? Master's degree (e.g., MA, MS, Al, MEd, FINANCE ADMINISTRATOR, [employer]) 05/25/2019 Sex and Gender Information Value Date Recorded Sex Assigned at Female 12/01/2022 1:57 PM CDT Gender Identity Female 08/12/2019 8:02 PM MANAGER OUTREACH Sexual Orientation Straight 08/12/2019 8: 02 PM MANAGER OUTREACH Last Filed Vital Signs Vital Sign Reading Time Taken Comments Blood Pressure 118/74 10/27/2022 3:11 PM MANAGER OUTREACH Pulse 74 10/27/2022 3:11 PM MANAGER OUTREACH Temperature 35.7 ??C (96.3 ??F) 10/27/2022 3:11 PM CS T Respiratory Rate 15 10/09/2022 5:15 PM MANAGER OUTREACH Oxygen Saturation 99% 10/27/2022 3:11 PM MANAGER OUTREACH Inhaled Oxygen Concentration - - Weight 92 kg (202 lb 13.2 oz) 12/03/2022 1:00 PM CDT Height 161.5 cm (5' 3.58) 12/03/2022 1:00 PM CD T Body Mass Index 35.27 12/03/2022 1:00 PM CDT Plan of Treatment Not on file Medical Devices Implanted Type Area Senior Mobile Developer Device Identifier Shelf Expiration Date Model / Serial / Lot Hardware E.G. Pins/Screws/Ro ds Hardware e.g. pins/screws/r ods Back Description:2 rods on each s edison of spine -scoliosis surgery Procedures Procedure Name Priority Date/Time Associated Diagnosis Comments LIPID PANEL, S Routine 10/09/2022 5:22 AM MANAGER OUTREACH PATHOLOGY ORACLE PROGRAMMER ANALYST CYTOLOGY Routine 05/31/2019 12:00 AM CDT Examination Other Normal Second Trimester HIV-1 P24 AG, HIV-1/2 AB ,P Routine 05/03/2019 12:09 PM CDT Examination Other Normal First Trimester from Last 3 Months or Most Recently Relevant to Health Maintenance Results * (ABNORMAL) Lipid Panel (10/09/2022 5:22 AM MANAGER OUTREACH) Triglycerides 134 mg/dL 10/09/2022 6:46 AM MANAGER OUTREACH DTL Comment: ----REFERENCE VALUE---- Normal: <150 mg/dL Borderline High: 150-199 mg/dL High: 200-499 mg/dL Very High: > or =500 mg/dL Cholesterol, Total 253(H) mg/dL 2022 6:46 AM MANAGER OUTREACH DTL Comment: ----REFERENCE VALUE---- Desirable: < 200 mg/dL Borderline High: 200 - 239 mg/dL High: > or = 240 mg/dL Cholesterol, LDL, Calculated 157(H) mg/dL 10/09/2022 6:46 AM MANAGER OUTREACH DTL Comment: ----REFERENCE VALUE---- Desirable: <100 mg/dL Above Desirable: 100-129 mg/dL Borderline High: 130-159 mg/dL High: 160-189 mg/dL Very High: >=190 mg/dL ----ADDITIONAL INFORMATION---- LDL cholesterol calculated using the Da Silva/NIH equation. Cholesterol, HDL, S 72 >=50 mg/dL 10/09/2022 6:46 AM MANAGER OUTREACH DTL Cholesterol, Non-HDL, Calculated 181(H) mg/dL 10/09/2022 6:46 AM MANAGER OUTREACH DTL Comment: ----REFERENCE VALUE---- Desirable: <130 mg/dL Above Desirable: 130-159 mg/dL Borderline High: 160-189 mg/dL High: 190-219 mg/dL Very High: > or =220 mg/dL Fasting (8 HR or more) Yes 10/09/2022 6:13 AM MANAGER OUTREACH DTL Blood (Blood, Venous) 10/09/2022 5:22 AM MANAGER OUTREACH 10/09/2022 6:13 AM MANAGER OUTREACH Wellington Chakraborty M.D. LAB BLOOD ADD-ON [address] [place], [place] [address] DTL [facility] [address] [place] [address] * Pathology ORACLE PROGRAMMER ANALYST Cytology (05/31/2019 12:00 AM CDT) PATHOLOGY ORACLE PROGRAMMER ANALYST CYTOLOGY Patient Name: CHAPINCITO MODI MR#: [id number] Submitting Physician: MEI SOUZA PERSONNEL CLERKS SUPERVISOR ??[id number] Specimen #[id number] Performing Lab: ??[facility] ? [address] [facility] [address] CLINICAL HISTORY: Last menstrual period: Status: Pap Type: Routine Pap Clinical History/Status (Select all that apply): Ancillary Testing: HPV with Genotyping, PCR, ThinPrep (order separately in [facility] [id number]) Source: ThinPrep cervical/endocervi denny specimen [ThinPrep vial] Diagnosis Specimen Adequacy: Satisfactory for interpretation : endocervical or transformation zone component present. General Categorization: Negative for intraepithelial lesion or malignancy. ?? Comment HPV with Genotyping, PCR, ThinPrep, testing performed by [facility] HPV High Risk type 16, PCR ? [...] false-negative and false-positive results have been experienced. [facility] Thin Prep Vial (Cervix/Endocervi x) 05/31/2019 06/01/2019 Mei Souza APRN, C.N.P. LAB PAP COPATH ORDERABLES [facility] [address] [place] [id number], [facility] * HIV-1 p24 Ag, HIV-1/2 Ab ,P [...] 05/03/2019 9:24 PM CDT Mei Souza APRN C.N.P. LAB MICROBIOLO GY - BLOOD ORDERABLES [facility] [address] [place] [address], [facility] from Last 3 Months or Most Recently Relevant to Health Maintenance Advance Directives For more information, please contact: [phone] * Full Code (Latest Code Status on File) Date Activated Date Inactivated Comments 10/08/2022 10:10 PM 10/09/2022 7:39 PM Question Answer Comments Full Code: Discussed * Full Code Date Activated Date Inactivated Comments 10/19/2019 11:39 AM 10/20/2019 5:12 PM Question Answer Comments Full Code: Not Discussed Due to: Not medically appropriate Care Teams Packager And Strapper Relationship Specialty Start Date End Date Mariah Villatoro M.D. [address] [place] [phone] PCP - General Family Medicine 07/10/20
--- OUTSIDE RECORDS SUMMARY | 2024-03-01 09:39 | XMS_ITS | Clinical Summary ---
Author Organization [facility] Address [place], [place] [address] Care Team Providers Care Multineedle Shirrer Name Role Phone Pcp, No Primary Care Provider Unavailabl e Allergies No known active allergies Medications Medication Sig Dispensed Refills Start Date End Date Status norethindrone-ethinyl estradiol (LOESTRIN 09/26; JUNEL 09/26) 1-20 mg-mcg tablet Take 1 Tablet by mouth once daily. 07/04/2021 Active Active Problems No known active problems Immunizations Name Administration Dates Next Due COVID-19 vaccine (BioTheryX 30mcg/0.3mL) P F, MDV 09/03/2021 Influenza, IIV4 09/03/2021,06/20/2020 Tdap 09/14/2019 Family History Medical History Relation Name Comments Asthma Father Cancer-colon Father Good Health Mother Asthma Sister Diabetes No Family History Heart Disease No Family History Relation Name Status Comments Father Mother Sister Social History Tobacco Use Types Packs/Day Years Used Date Smoking Tobacco: Never Smokeless Tobacco: Never Tobacco Cessation:Counseling Given: Yes Alcohol Use Standard Drinks/Week Comments Yes 0 (1 standard drink = 0.6 oz pur e alcohol) once a week PHQ-2 Answer Date Recorded PHQ-2 TOTAL SCORE 0 09/03/2021 Social Connections Answer Date Recorded Frequency of Communication with Friends and Fami ly Not on file 09/03/2021 Financial Resource Strain Answer Date R ecorded Difficulty of Paying Living Expenses Not on file 09/03/2021 Difficulty of Paying Living Expenses Not on file 09/03/2021 Sex and Gender Information Value Date Recorded Sex Assigned at Not on file Gender Identity Not on file Sexual Orientation Not on file Obstetrics History Last Filed Vital Signs Vital Sign Reading Time Taken Comments Blood Pressure 117/81 09/03/2021 7:53 AM CNA GNA Pulse 71 09/03/2021 7:53 AM CNA GNA Temperature - - Respiratory Rate - - Oxygen Saturation 97% 09/03/2021 7:53 AM CNA GNA Inhaled Oxygen Concentration - - Weight 86.2 kg (190 lb) 09/03/2021 7:53 AM CNA GNA Height 159.1 cm (5' 2.64) 09/03/2021 7:53 AM CS T Body Mass Index 34.05 09/03/2021 7:53 AM CNA GNA Plan of Treatment Health Maintenance Due Date Last Done Comments HIV for age 15-65 2002 Hepatitis C screening for age 18-79 2005 BMI (ht and wt on same day) for age 18+ 09/03/2022 09/03/2021 Depression screening for age 12+ 09/03/2022 09/03/2021 COVID-19 vaccine series ( season) 2023 09/03/2021, 12/24/2020, 11/29/2020 Influenza for age 9-49 05/08/2024 09/03/2021, 2019 Pap test for age 21-65 05/31/2024 9 (Completed outside of [facility]) Tetanus booster 09/14/2029 09/14/2019 Tdap Completed 09/14/2019 Pneumococcal series for age 6-64 Aged Out No longer eligible based on patient's age to complete this topic Care Teams Multineedle Shirrer Relationship Specialty Start Date End Date Pcp, No . PCP - General 08/28/21
--- OUTSIDE RECORDS SUMMARY | 2024-03-01 09:39 | XMS_ITS ---
Author Organization [facility] Address [address] [place] [address] Care Team Providers Care Intervention Manager Name Role Phone Unavailable Unavailable Unavailable Surgery Details Not on file Complications Check Surgery Details section. Procedure Estimated Blood Loss Check Surgery Details section. Procedure Findings Check Surgery Details section. Procedure Specimens Taken Check Surgery Details section.
== END 2024-03-01 09:26 | disposition home or self-care (01) ==
LOC: NFLDREF 09:35
PROVIDERS: PCP Obstetrics & Gynecology; Visit Provider Physician Assistant
DX: Z01.419 Encounter for gynecological examination (general) (routine) without abnormal findings (principal); N39.46 Mixed incontinence; Z13.1 Encounter for screening for diabetes mellitus; Z13.6 Encounter for screening for cardiovascular disorders; Z12.4 Encounter for screening for malignant neoplasm of cervix
CPT/HCPCS: 80061; 82947

== ENCOUNTER 2024-04-05 13:47 | Outpatient (RCR) | payer OTHER, SELFPAY | END 2024-08-03 23:59 | disposition home or self-care (01) | PROVIDERS: PCP Obstetrics & Gynecology; Visit Provider Physician Assistant | DX: N39.46 Mixed incontinence (principal); M25.659 Stiffness of unspecified hip, not elsewhere classified; R27.8 Other lack of coordination; Z98.891 History of uterine scar from previous surgery; Z51.89 Encounter for other specified aftercare | CPT/HCPCS: 97112; 97161 ==